=== PATIENT | female | born 1990 | race Caucasian/White ===

== ENCOUNTER 2020-06-04 09:13 | Emergency (ER) | payer MEDICAID ==
[~2020-06-04] VITALS: Ht 170.2 cm; Wt 102.1 kg
[2020-06-04 09:33] VITALS: BP 140/88
== END 2020-06-04 11:00 | disposition home or self-care (01) ==
LOC: ER 09:13
DX: S29.012A Strain of muscle and tendon of back wall of thorax, initial encounter (principal); X50.1XXA Overexertion from prolonged static or awkward postures, initial encounter; Y93.89 Activity, other specified; Y92.89 Other specified places as the place of occurrence of the external cause; Y99.8 Other external cause status
CPT/HCPCS: 72070

== ENCOUNTER 2022-04-17 10:19 | Emergency (ER) | payer MEDICAID | END 2022-04-17 10:58 | disposition left against medical advice (07) | LOC: ER 10:19 | DX: R10.9 Unspecified abdominal pain (principal); R11.10 Vomiting, unspecified; Z53.21 Procedure and treatment not carried out due to patient leaving prior to being seen by health care provider ==

== ENCOUNTER 2022-04-19 07:00 | Emergency (ER) | payer MEDICAID ==
[~2022-04-19] VITALS: Ht 170.2 cm; Wt 220.0 kg
[2022-04-19 08:08] LABS: Urine Bacteria NONE SEEN /hpf (None Seen); Urine Blood Negative /uL (Negative); Urine Mucus FEW (None Seen); Urine Specific Gravity 1.031 (1.001-1.035); Urine WBC 4 /hpf (0 - 5)
[2022-04-19] MEDS ORDERED: KETOROLAC TROMETH 30 MG/ML 1ML VIAL IV ONE (08:30)
[2022-04-19] MEDS ORDERED: METOCLOPRAMIDE HCL 5MG/ml INJ 2ml VIAL IV ONE (08:30)
[2022-04-19] MEDS ORDERED: SODIUM CHLORIDE 0.9% 1,000 ML IV ONE (08:30)
[2022-04-19 08:31] LABS: Basophils # (auto) 0 10 ^3/uL (0-0.2); Basophils % (auto) 0.6 % (0.0-2.0); Eosinophils # (auto) 0.1 10 ^3/uL (0-0.8); Eosinophils % (auto) 1.4 % (0.0-7.0); Hematocrit 38.9 % (36.0-46.0); Hemoglobin 12.8 g/dL (12.2-16.2); Lymphocytes # (auto) 1.5 10 ^3/uL (0.4-5.4); Lymphocytes % (auto) 18.7 % (10.0-50.0); Mean Corpuscular Hemoglobin 28.8 pg (28.0-32.0); Mean Corpuscular Hgb Conc. 32.8 g/dL (32.0-36.0); Mean Corpuscular Volume 87.9 fL (80.0-100.0); Monocytes # (auto) 0.6 10 ^3/uL (0-1.3); Neutrophils # (auto) 5.8 10 ^3/uL (1.6-8.6); Neutrophils % (auto) 72.3 % (37.0-80.0); Red Blood Cells 4.43 10^6/uL (4.0-5.20); Red Cell Distribution Width 13.4 % (11.8-14.3)
[2022-04-19 08:47] LABS: Albumin 3.9 g/dL (3.4-5.0); Calcium 8.9 mg/dL (8.5-10.1)
[2022-04-19 08:50] LABS: BUN/Creatinine Ratio 25.3; Bilirubin, Total 0.2 mg/dL (0.2-1.0); Total Protein 7.2 g/dL (6.4-8.2)
[2022-04-19] MEDS ORDERED: MORPHINE SULFATE INJ 2 MG/ml SYRG IV ONE (10:00)
[2022-04-19] MEDS ORDERED: ONDANSETRON HCL 4 MG/2 ML VIAL ONE (10:06)
[2022-04-19 10:13] VITALS: BP 177/101
[2022-04-19] MEDS ORDERED: ONDANSETRON HCL 4 MG/2 ML VIAL IV ONE (10:15)
== END 2022-04-19 10:36 | disposition left against medical advice (07) ==
LOC: ER 07:00
DX: R10.30 Lower abdominal pain, unspecified (principal)
CPT/HCPCS: 36415; 71046; 74177; 80053; 81001; 81025; 83690; 83735; 84702; 85025; 96361; 96374; 96375; 99285; J1885; J2270; J2405; J2765; J7030

== ENCOUNTER 2022-05-02 22:05 | Emergency (ER) | payer MEDICAID ==
[~2022-05-02] VITALS: Ht 167.6 cm; Wt 95.5 kg
[2022-05-02 22:10] VITALS: BP 147/87
== END 2022-05-03 08:08 | disposition left against medical advice (07) ==
LOC: EDBD 22:05 → ER 22:12
DX: R10.9 Unspecified abdominal pain (principal); Z53.21 Procedure and treatment not carried out due to patient leaving prior to being seen by health care provider

== ENCOUNTER 2022-05-10 01:33 | Inpatient (IN) | payer MEDICAID ==
[~2022-05-10] VITALS: Ht 170.2 cm; Wt 102.5 kg
[2022-05-10 02:57] LABS: Basophils # (auto) 0 10 ^3/uL (0-0.2); Basophils % (auto) 0.4 % (0.0-2.0); Eosinophils # (auto) 0.1 10 ^3/uL (0-0.8); Eosinophils % (auto) 0.9 % (0.0-7.0); Hematocrit 41.3 % (36.0-46.0); Lymphocytes # (auto) 1.7 10 ^3/uL (0.4-5.4); Lymphocytes % (auto) 18.4 % (10.0-50.0); Mean Corpuscular Hemoglobin 29.7 pg (28.0-32.0); Mean Corpuscular Hgb Conc. 33.9 g/dL (32.0-36.0); Mean Corpuscular Volume 87.7 fL (80.0-100.0); Monocytes # (auto) 1.3 10 ^3/uL (0-1.3); Neutrophils % (auto) 66.3 % (37.0-80.0); Nucleated Red Blood Cells % 0.1 %; Red Blood Cells 4.71 10^6/uL (4.0-5.20); Red Cell Distribution Width 13.5 % (11.8-14.3); White Blood Cell 9.1 10^3/uL (4.4-10.8)
[2022-05-10 03:16] LABS: Albumin 4.3 g/dL (3.4-5.0); BUN/Creatinine Ratio 23.8; Calcium 8.8 mg/dL (8.5-10.1); Potassium 3.3 mmol/L (3.5-5.1)
[2022-05-10 03:18] LABS: Bilirubin, Total 0.6 mg/dL (0.2-1.0)
[2022-05-10 08:24] LABS: Urine Bacteria FEW /hpf (None Seen); Urine Blood Negative /uL (Negative); Urine Mucus FEW (None Seen); Urine Specific Gravity 1.032 (1.001-1.035); Urine WBC 2 /hpf (0 - 5)
[2022-05-10] MEDS ORDERED: KETOROLAC TROMETH 30 MG/ML 1ML VIAL IV ONE (10:00)
[2022-05-10] MEDS ORDERED: SODIUM CHLORIDE 0.9% 1,000 ML IV ONE (10:00)
[2022-05-10] MEDS ORDERED: METOCLOPRAMIDE HCL 5MG/ml INJ 2ml VIAL IV ONE ×2 (10:00→10:30)
[2022-05-10] MEDS ORDERED: TEMAZEPAM 15 MG CAP PO PRN (10:15)
[2022-05-10] MEDS ORDERED: MORPHINE SULFATE INJ 2 MG/ml SYRG IV PRN (10:15)
[2022-05-10] MEDS ORDERED: TAMSULOSIN HYDROCHLORIDE 0.4 MG CAP PO ONE (10:15)
[2022-05-10] MEDS: SODIUM CHLORIDE 0.9% 1,000 ML IV SCH ×4 (10:15→21:45)
[2022-05-10] MEDS ORDERED: NITROGLYCERIN 0.4 MG SL TAB SL PRN (10:15)
[2022-05-10] MEDS ORDERED: ACETAMINOPHEN 325 MG TAB PO PRN (10:15)
[2022-05-10] MEDS: cefTRIAXone 1GM/50ML D5W 50 ML IV SCH (10:26)
[2022-05-10] MEDS: METOCLOPRAMIDE HCL 5MG/ml INJ 2ml VIAL IV SCH ×2 (10:26→17:51)
[2022-05-10] MEDS ORDERED: POTASSIUM CHLORIDE 20 MEQ, LIDOCAINE 1% (LOCAL ANESTH.) 2 ML in SODIUM CHL 0.9% 100 ML IV ONE (11:30)
[2022-05-10] MEDS ORDERED: hydrALAZINE HCL 20 MG/ML VL IV PRN (13:45)
[2022-05-10] MEDS ORDERED: traMADol HCL 50 MG TAB PO PRN (13:45)
[2022-05-10] MEDS: SUCRALFATE 1 GM/10 ML ORAL SUSP PO SCH (16:53)
[2022-05-10] MEDS: ONDANSETRON HCL 4 MG/2 ML VIAL IV PRN ×2 (16:54→22:12)
[2022-05-10] MEDS: MORPHINE SULFATE INJ 2 MG/ml SYRG IV PRN ×2 (16:54→22:21)
[2022-05-10 23:03] VITALS: BP 120/64
[2022-05-10 23:33] VITALS: BP 120/64
[2022-05-11] MEDS: METOCLOPRAMIDE HCL 5MG/ml INJ 2ml VIAL IV SCH ×4 (00:33→18:58)
[2022-05-11 04:30] VITALS: BP 112/58
[2022-05-11] MEDS: SODIUM CHLORIDE 0.9% 1,000 ML IV SCH ×4 (05:19→22:01)
[2022-05-11] MEDS: SUCRALFATE 1 GM/10 ML ORAL SUSP PO SCH ×2 (06:23→18:58)
[2022-05-11 08:33] VITALS: BP 114/58
[2022-05-11] MEDS: MORPHINE SULFATE INJ 2 MG/ml SYRG IV PRN ×3 (09:07→23:19)
[2022-05-11] MEDS: cefTRIAXone 1GM/50ML D5W 50 ML IV SCH (09:07)
[2022-05-11] MEDS: TAMSULOSIN HYDROCHLORIDE 0.4 MG CAP PO SCH (09:08)
[2022-05-11] MEDS: PANTOPRAZOLE 40 MG/10 ML VIAL INJ IV SCH (09:08)
[2022-05-11 09:42] LABS: Basophils # (auto) 0 10 ^3/uL (0-0.2); Basophils % (auto) 0.8 % (0.0-2.0); Eosinophils # (auto) 0.2 10 ^3/uL (0-0.8); Eosinophils % (auto) 2.7 % (0.0-7.0); Hematocrit 37.7 % (36.0-46.0); Hemoglobin 12.7 g/dL (12.2-16.2); Lymphocytes # (auto) 0.8 10 ^3/uL (0.4-5.4); Lymphocytes % (auto) 13.5 % (10.0-50.0); Mean Corpuscular Hemoglobin 29.3 pg (28.0-32.0); Mean Corpuscular Hgb Conc. 33.5 g/dL (32.0-36.0); Mean Corpuscular Volume 87.3 fL (80.0-100.0); Monocytes # (auto) 0.8 10 ^3/uL (0-1.3); Monocytes % (auto) 12.5 % (0.0-12.0); Neutrophils # (auto) 4.4 10 ^3/uL (1.6-8.6); Neutrophils % (auto) 70.5 % (37.0-80.0); Nucleated Red Blood Cells % 0.1 %; Red Blood Cells 4.32 10^6/uL (4.0-5.20); Red Cell Distribution Width 13.3 % (11.8-14.3); White Blood Cell 6.2 10^3/uL (4.4-10.8)
[2022-05-11 10:02] LABS: Potassium 3.3 mmol/L (3.5-5.1)
[2022-05-11 10:13] LABS: Albumin 3.5 g/dL (3.4-5.0); BUN/Creatinine Ratio 23.8; Bilirubin, Total 0.6 mg/dL (0.2-1.0); Calcium 8.2 mg/dL (8.5-10.1); Magnesium 2.2 mg/dL (1.6-2.6); Phosphorus 2.4 mg/dL (2.5-4.90); Total Protein 6.1 g/dL (6.4-8.2)
[2022-05-11 12:57] VITALS: BP 110/52
[2022-05-11 17:23] VITALS: BP 111/50
[2022-05-11 20:00] VITALS: BP 126/60
[2022-05-11] MEDS: ONDANSETRON HCL 4 MG/2 ML VIAL IV PRN (23:19)
[2022-05-12] MEDS: METOCLOPRAMIDE HCL 5MG/ml INJ 2ml VIAL IV SCH ×4 (00:32→17:49)
[2022-05-12 05:07] VITALS: BP 125/62
[2022-05-12] MEDS: SODIUM CHLORIDE 0.9% 1,000 ML IV SCH ×2 (05:45→13:55)
[2022-05-12] MEDS: SUCRALFATE 1 GM/10 ML ORAL SUSP PO SCH ×2 (06:10→17:49)
[2022-05-12 09:35] VITALS: BP 118/67
[2022-05-12] MEDS: TAMSULOSIN HYDROCHLORIDE 0.4 MG CAP PO SCH (09:57)
[2022-05-12] MEDS: PANTOPRAZOLE 40 MG/10 ML VIAL INJ IV SCH (09:57)
[2022-05-12] MEDS: ONDANSETRON HCL 4 MG/2 ML VIAL IV PRN (09:57)
[2022-05-12] MEDS: cefTRIAXone 1GM/50ML D5W 50 ML IV SCH (09:58)
[2022-05-12] MEDS: MORPHINE SULFATE INJ 2 MG/ml SYRG IV PRN (09:59)
[2022-05-12 10:34] LABS: BUN/Creatinine Ratio 14.8; Potassium 3.4 mmol/L (3.5-5.1)
[2022-05-12 11:35] LABS: INR 1.09 (0.9-1.15); Partial Thromboplastin Time 26.7 sec (24.6-33.4)
[2022-05-12] MEDS ORDERED: LIDOCAINE VISCOUS 2% 15ML UD ONE (12:21)
[2022-05-12] MEDS ORDERED: MIDAZOLAM HCL 5 MG/ML-1ML VIAL ONE (12:21)
[2022-05-12] MEDS ORDERED: fentaNYL CITRATE 100 MCG/2 ML VL ONE (12:22)
[2022-05-12] MEDS ORDERED: diphenhdrAMINE HCL 50 MG/1 ML VL ONE (12:22)
[2022-05-12] MEDS ORDERED: GADOTERATE MEG 10 MMOL/20ml INJ (0.5MMOL/ml) IV ONE (15:06)
[2022-05-12] MEDS ORDERED: LIDOCAINE VISCOUS 2% 15ML UD MT ONE (16:20)
[2022-05-12] MEDS ORDERED: MIDAZOLAM HCL 5 MG/ML-1ML VIAL IV ONE ×3 (16:21→16:25)
[2022-05-12] MEDS ORDERED: fentaNYL CITRATE 100 MCG/2 ML VL IV ONE ×2 (16:21→16:24)
[2022-05-12] MEDS ORDERED: diphenhdrAMINE HCL 50 MG/1 ML VL IV ONE ×2 (16:21→16:22)
[2022-05-12 17:05] VITALS: BP 122/75
== END 2022-05-12 18:30 | disposition left against medical advice (07) | DRG 465 ==
LOC: ER 01:33 → OVERFLOW 10:17 → WEST WING 23:00
PROVIDERS: ADMIT Nurse Practitioner Family; ATTEND Nurse Practitioner Family
PROC: 0DB68ZX Excision of Stomach, Via Natural or Artificial Opening Endoscopic, Diagnostic (ICD-10-PCS; 2022-05-12)
PROC: 0DB98ZX Excision of Duodenum, Via Natural or Artificial Opening Endoscopic, Diagnostic (ICD-10-PCS; principal; 2022-05-12 16:17)
DX: N20.0 Calculus of kidney (principal); E66.9 Obesity, unspecified; I10 Essential (primary) hypertension; N28.1 Cyst of kidney, acquired; N29 Other disorders of kidney and ureter in diseases classified elsewhere; Z53.29 Procedure and treatment not carried out because of patient's decision for other reasons; Z20.822 Contact with and (suspected) exposure to COVID-19; K29.70 Gastritis, unspecified, without bleeding; Z82.71 Family history of polycystic kidney; Z68.34 Body mass index [BMI] 34.0-34.9, adult
CPT/HCPCS: 36415; 43239; 74176; 80048; 80053; 81001; 83690; 83735; 84100; 84702; 85025; 85610; 85730; 87081; 87426; 96361; 96365; 96375; C9113; G0378; J0696; J1885; J2001; J2250; J2405

== ENCOUNTER 2022-10-04 14:35 | Emergency (ER) | payer MEDICAID ==
[~2022-10-04] VITALS: Ht 170.2 cm; Wt 108.0 kg
[2022-10-04 14:35] VITALS: BP 29/83
[~2022-10-04 14:35] MED LIST: ONDA-144 PO; PANT40TA2 PO; TRAM-297 PO
[2022-10-04 15:49] LABS: Eosinophils # (auto) 0 10 ^3/uL (0-0.8); Hemoglobin 14.7 g/dL (12.2-16.2); Lymphocytes # (auto) 1.1 10 ^3/uL (0.4-5.4); Mean Corpuscular Volume 88.1 fL (80.0-100.0); Monocytes # (auto) 0.5 10 ^3/uL (0-1.3)
[2022-10-04 15:51] LABS: Basophils # (auto) 0 10 ^3/uL (0-0.2); Basophils % (auto) 0.3 % (0.0-2.0); Mean Corpuscular Hemoglobin 30.1 pg (28.0-32.0); Mean Corpuscular Hgb Conc. 34.1 g/dL (32.0-36.0); Monocytes % (auto) 4.5 % (0.0-12.0); Neutrophils # (auto) 9.5 10 ^3/uL (1.6-8.6); Neutrophils % (auto) 85.2 % (37.0-80.0); Red Blood Cells 4.88 10^6/uL (4.0-5.20); Red Cell Distribution Width 13.3 % (11.8-14.3); White Blood Cell 11.1 10^3/uL (4.4-10.8)
[2022-10-04 16:05] LABS: Albumin 4.6 g/dL (3.4-5.0); BUN/Creatinine Ratio 20.2; Calcium 10.1 mg/dL (8.5-10.1); Potassium 3.9 mmol/L (3.5-5.1)
[2022-10-04 16:08] LABS: Bilirubin, Total 0.6 mg/dL (0.2-1.0); Total Protein 8.5 g/dL (6.4-8.2)
[2022-10-04] MEDS ORDERED: SODIUM CHLORIDE 0.9% 1,000 ML IV ONE ×2 (16:15)
== END 2022-10-04 18:35 | disposition left against medical advice (07) ==
LOC: ER 14:35
DX: R10.84 Generalized abdominal pain (principal); R11.2 Nausea with vomiting, unspecified; E11.9 Type 2 diabetes mellitus without complications; Z90.89 Acquired absence of other organs; Z79.899 Other long term (current) drug therapy
CPT/HCPCS: 36415; 80053; 83690; 85025

== ENCOUNTER 2023-11-25 13:28 | Emergency (ER) | payer MEDICAID ==
[~2023-11-25] VITALS: Ht 170.2 cm; Wt 122.0 kg
[2023-11-25 15:17] VITALS: BP 151/88; PULSE 99; RESP 16; TEMP 98.3; O2SAT 98
[2023-11-25] MEDS ORDERED: AUG875T PO (15:44)
[2023-11-25] MEDS ORDERED: GUAI200T6 PO (15:44)
[2023-11-25] MEDS ORDERED: ACET500T58 PO (15:44)
[2023-11-25] MEDS ORDERED: BENZ200C64 PO (15:44)
[2023-11-25] MEDS ORDERED: PROM1SOL4 PO (15:44)
== END 2023-11-25 15:47 | disposition home or self-care (01) ==
LOC: ER 13:28
DX: B34.9 Viral infection, unspecified (principal); J06.9 Acute upper respiratory infection, unspecified; E11.9 Type 2 diabetes mellitus without complications

== ENCOUNTER 2024-07-31 23:39 | Emergency (ER) | payer MEDICAID ==
[~2024-07-31] VITALS: Ht 170.2 cm; Wt 125.0 kg
[~2024-07-31 23:39] MED LIST changes: +ACET500T58 PO; +AUG875T PO; +BENZ200C64 PO; +GUAI200T6 PO; +PROM1SOL4 PO
[2024-08-01] MEDS ORDERED: ONDANSETRON ODT 4 MG TAB PO ONE (00:15)
[2024-08-01 00:28] LABS: Basophils # (auto) 0.1 10 ^3/uL (0-0.2); Basophils % (auto) 0.5 % (0.0-2.0); Eosinophils # (auto) 0.1 10 ^3/uL (0-0.8); Eosinophils % (auto) 0.5 % (0.0-7.0); Hematocrit 42.1 % (36.0-46.0); Hemoglobin 14.1 g/dL (12.2-16.2); Lymphocytes # (auto) 1.9 10 ^3/uL (0.4-5.4); Lymphocytes % (auto) 14.7 % (10.0-50.0); Mean Corpuscular Hemoglobin 28.8 pg (28.0-32.0); Mean Corpuscular Hgb Conc. 33.4 g/dL (32.0-36.0); Mean Corpuscular Volume 86.3 fL (80.0-100.0); Monocytes # (auto) 1.4 10 ^3/uL (0-1.3); Monocytes % (auto) 10.9 % (0.0-12.0); Neutrophils # (auto) 9.4 10 ^3/uL (1.6-8.6); Neutrophils % (auto) 73.4 % (37.0-80.0); Platelet Count (auto) 395 10^3/uL (140-450); Red Blood Cells 4.88 10^6/uL (4.0-5.20); Red Cell Distribution Width 15.4 % (11.8-14.3); White Blood Cell 12.8 10^3/uL (4.4-10.8)
[2024-08-01 00:31] LABS: Urine Bacteria FEW /hpf (None Seen); Urine Blood 1+ /uL (Negative); Urine Clarity Turbid (Clear); Urine Color Yellow (Yellow); Urine Mucus FEW (None Seen); Urine Protein, UAD 2+ (Negative); Urine Specific Gravity 1.027 (1.001-1.035); Urine Squamous Epithelial Cell FEW /hpf (<5); Urine Urobilinogen Normal (Negative); Urine WBC 14 /hpf (0 - 5); Urine pH 6.5 (5.0-9.0)
--- NOTE | 2024-08-01 00:34 | ED.PDOC ---
GI ASSESSMENT HPI Comments 33-year-old female who came to ER due to abdominal pain. Patient states she has been having abdominal pain for over a week. Pain to be suprapubic radiating to her left flank and back area, associated bouts of nausea and vomiting. States she could not keep anything in. Patient was seen at [facility] and showed negative results. Earlier today, patient had a bowel movement, last bowel movement was 2 weeks ago, she started having rectal pain, and defecated blackish stools. Persistence of abdominal and rectal pain with intractable nausea and vomiting prompted patient to come to the ER Chief Complaint: Abdominal Pain Time Seen by MD: 00:33 Primary Care Provider: NONE Reviewed Notes: Nurses Notes Allergies: Coded Allergies: NO KNOWN ALLERGIES (Unverified , 02/25/15) Home Meds Active Scripts Guaifenesin (Guaifenesin) 200 Mg Tab, 200 MG PO BIDP PRN for 10 Days, #20 TAB 0 Refills Prov:TIKA LAIRD NP 11/25/23 Acetaminophen (Acetaminophen) 500 Mg Tab, 1000 MG PO QIDPRN for 10 Days, #80 TAB 0 Refills Prov:TIKA LAIRD NP 11/25/23 Promethazine-Dm (Promethazine Dm 6.25-15 mg/5Ml) 1 Ananya Ananya, 5 ML PO TIDPRN PRN for 10 Days, #150 ML 0 Refills Prov:TIKA LAIRD NP 11/25/23 Benzonatate (Benzonatate) 200 Mg Cap, 1 CAP PO TID for 10 Days, #60 CAP 0 Refills Prov:TIKA LAIRD NP 11/25/23 Amoxicillin & Pot Clavulanate (AUGMENTIN TABLET) 875 Mg Tb, 875 MG PO BID for 5 Days, #10 TAB 0 Refills Prov:TIKA LAIRD NP 11/25/23 Tramadol Hcl (Ultram) 50 Mg Tab, 1 TAB PO Q6HR, #30 TAB Prov:LUIS POSADA MD 09/27/22 Pantoprazole Sodium Sesquihydr (Protonix) 40 Mg Tab, 40 MG PO DAILY, #30 TAB Prov:LUIS POSADA MD 09/27/22 Ondansetron (Zofran) 4 Mg Tab, 1 TAB PO Q6HR, #20 TAB Prov:LUIS POSADA MD 09/27/22 Information Source: Patient Mode of Arrival: Ambulatory Timing: Hours Duration: Since onset Prehospital treatment: None Quality: Aching Vomitus: Watery Stool: Impaction Severity: Moderate Recent: None Recent Hx of: Diabetes Pain Location: Suprapubic Modifying Factors: Nothing Associated sign and symptoms: Nausea, Vomiting, Melena, Abdominal Pain Past Medical History PAST MEDICAL HISTORY: DM Surgical History: Tonsillectomy NEONATAL PEDIATRIC NURSE History: No Pertinent NEONATAL PEDIATRIC NURSE History Family History Family History: Reviewed,noncontributory to illness Social History Smoker: Non-Smoker Alcohol: Denies ETOH Use Drugs: Denies Drug Use Lives In: Home Constitutional: denies: chills, diaphoresis, fatigue, fever, malaise, sweats, weakness, others EENTM: denies: blurred vision, double vision, ear bleeding, ear discharge, ear drainage, ear pain, ear ringing, eye pain, eye redness, hearing loss, mouth pain, mouth swelling, nasal discharge, nose bleeding, nose congestion, nose pain, photophobia, tearing, throat pain, throat swelling, voice changes, others Respiratory: denies: cough, hemoptysis, orthopnea, SOB at rest, shortness of breath, SOB with excertion, stridor, wheezing, others Cardiovascular: denies: chest pain, dizzy spells, diaphoresis, Dyspnea on exertion, edema, irregular heart beat, left arm pain, lightheadedness, palpitations, PND, syncope, others Gastrointestinal: reports: abdominal pain, constipated, melena, nausea, rectal pain, vomiting; denies: abdomen distended, blood streaked bowels, diarrhea, dysphagia, difficulty swallowing, hematemesis, poor appetite, poor fluid intake, rectal bleeding, others Genitourinary: denies: abnormal vagina bleeding, burning, dyspareunia, dysuria, flank pain, frequency, hematuria, incontinence, pain, , vagina discharge, urgency, others Neurological: denies: dizziness, fainting, headache, left sided numbness, left sided weakness, numbness, paresthesia, pre-existing deficit, right sided numbness, right sided weakness, seizure, speech problems, tingling, tremors, weakness, others Musculoskeletal: denies: back pain, gout, joint pain, joint swelling, muscle pain, muscle stiffness, neck pain, others Integumetry: denies: bruises, change in color, change in hair/nails, dryness, laceration, lesions, lumps, rash, wounds, others Allergic/Immunocompromised: denies: Difficulty Healing, Frequent Infections, Hives, Itching, others Hematologic/Lymphatic: denies: anemia, blood clots, easy bleeding, easy bruising, swollen glands, others Endocrine: denies: excessive hunger, excessive sweating, excessive thirst, excessive urination, flushing, intolerance to cold, intolerance to heat, unexplained weight gain, unexplained weight loss, others Psychiatric: denies: anxiety, bipolar disorder, depression, hopeless, panic disorder, schizophrenia, sleepless, suicidal, others Physical Exam General Appearance: Moderate Distress (Patient appears to be in moderate distress and very uncomfortable at time of evaluation.), Obese HEENT: Normal ENT Inspection, Pharynx Normal, TMs Normal Neck: Full Range of Motion, Non-Tender, Normal, Normal Inspection Respiratory: Chest Non-Tender, Lungs Clear, No Accessory Muscle Use, No Resp iratory Distress, Normal Breath Sounds Cardiovascular: No Edema, No JVD, No Murmur, No Gallop, Normal Peripheral Pulses, Regular Rate/Rhythm Breast Exam: Deferred Gastrointestinal: No Pulsatile Mass, Normal Bowel Sounds, Soft, Other (Diffuse bilateral lower abdominal pain extending towards the left flank. No definitive CVA tenderness. Difficult to assess due to body habitus.) Genitalia: Deferred Pelvic: Deferred Rectal: Deferred Extremities: No calf tenderness, Normal capillary refill, Normal inspection, Normal range of motion, Non-tender, No pedal edema Musculoskeletal : Apperance: Normal Neurologic: Alert, No Motor Deficits, Normal Affect, Normal Mood, No Sensory Deficits Cerebellar Function: Normal Reflexes: Normal Skin: Dry, Normal Color, Warm Lymphatic: No Adenopathy Was a procedure done? Was a procedure done?: No GI differential Dx Differential Diagnosis: Bowel Obstruction, Constipation, Diverticular disease, Gastritis/PUD, Gastroenteritis, Hernia, UTI, Urolithiasis X-Ray, Labs, Meds, VS Vital Signs Date Time Temp Pulse Resp B/P (MAP) Pulse Ox O2 Delivery O2 Flow Rate FiO2 07/31/24 23:46 99.9 131 20 151/98 (115) 94 Lab Test 08/01/24 00:21 07/31/24 23:45 Range/Units White Blood Count 12.8 H 4.4-10.8 10^3/uL Red Blood Count 4.88 4.0-5.20 10^6/uL Hemoglobin 14.1 12.2-16.2 g/dL Hematocrit 42.1 36.0-46.0 % Mean Corpuscular Volume 86.3 80.0-100.0 fL Mean Corpuscular Hemoglobin 28.8 28.0-32.0 pg Mean Corpuscular Hemoglobin Concent 33.4 32.0-36.0 g/dL Red Cell Distribution Width 15.4 H 11.8-14.3 % Platelet Count 395 140-450 10^3/uL Mean Platelet Volume 8.3 6.9-10.8 fL Neutrophils (%) (Auto) 73.4 37.0-80.0 % Lymphocytes (%) (Auto) 14.7 10.0-50.0 % Monocytes (%) (Auto) 10.9 0.0-12.0 % Eosinophils (%) (Auto) 0.5 0.0-7.0 % Basophils (%) (Auto) 0.5 0.0-2.0 % Neutrophils # (Auto) 9.4 H 1.6-8.6 10 ^3/uL Lymphocytes # (Auto) 1.9 0.4-5.4 10 ^3/uL Monocytes # (Auto) 1.4 H 0-1.3 10 ^3/uL Eosinophils # (Auto) 0.1 0-0.8 10 ^3/uL Basophils # (Auto) 0.1 0-0.2 10 ^3/uL Nucleated Red Blood Cells 0.0 % Sodium Level 138 136-145 mmol/L Potassium Level 3.2 L 3.5-5.1 mmol/L Chloride Level 106 98-107 mmol/L Carbon Dioxide Level 22 20-31 mmol/L Anion Gap 10 5-15 Blood Urea Nitrogen 16 9-23 mg/dL Creatinine 0.90 0.550-1.02 mg/dL Glomerular Filtration Rate Calc 87 >90 mL/min BUN/Creatinine Ratio 17.8 10.0-20.0 Serum Glucose 114 H 74-106 mg/dL Calcium Level 10.5 H 8.7-10.4 mg/dL Lipase 32 12-53 U/L Urine Color Yellow Yellow Urine Clarity Turbid H Clear Urine pH 6.5 5.0-9.0 Urine Specific [place] 1.027 1.001-1.035 Urine Protein 2+ H Negative Urine Ketones 4+ H Negative Urine Blood 1+ H Negative /uL Urine Nitrite Negative Negative Urine Bilirubin Negative Negative Urine Urobilinogen Normal Negative mg/dL Urine Leukocyte Esterase 2+ Negative /uL Urine RBC 4 0 - 4 /hpf Urine WBC 14 0 - 5 /hpf Urine Squamous Epithelial Cells Few <5 /hpf Urine Bacteria Few H None Seen /hpf Urine Mucus Few None Seen Urine Glucose Normal Normal mg/dL X-Ray, Labs, Meds, VS Comment All studies performed the ED were evaluated by me personally. Serum laboratories were unremarkable but urinalysis confirmed a UTI. Patient was dispensed her 1st dose of antibiotics prior to discharge. Advised patient utilize medication as directed and to completion. CT studies of the abdomen were unremarkable for any systemic process. Time of 1ST Reevaluation: 02:37 Reevaluation 1ST: Improved Consultation: PCP Patient Education/Counseling: Diagnosis, Treatment Family Education/Counseling: Diagnosis, Treatment Departure 1 Departure Time of Disposition: 02:38 Impression: Primary Impression: UTI (urinary tract infection) Disposition: HOME / SELF CARE / HOMELESS Condition: Stable Additional Instructions: Advised patient utilize antibiotics as directed until completion. Patient should practice good hydration and healthy nutrition throughout illness event. e-Prescriptions Acetaminophen (Acetaminophen) 500 Mg Tab 500 MG PO Q4HP PRN, #30 TAB Prov: PIYUSH TREADWELL PAC 08/01/24 Ibuprofen Micronized (Ibuprofen) 800 Mg Tab 800 MG PO Q8HP PRN, #20 TAB Prov: PIYUSH TREADWELL 08/01/24 Ondansetron Odt 4MG Tab (ZOFRAN PO) 4 Mg Tb 4 MG PO Q6HP PRN, #20 TAB ODT TAB-DISSOLVE IN MOUTH, THEN SWALLOW Prov: PIYUSH TREADWELL 08/01/24 Ciprofloxacin Hcl (Cipro) 500 Mg Tab 1 TAB PO BID for 7 Days, #14 TAB Prov: PIYUSH TREADWELL 08/01/24 Discharged With: Self, Friend Critical Care Note Critical Care Time?: No Stability Stability form required: No Heart Score Heart Score: Heart Score Response (Comments) Value History N/A 0 EKG N/A 0 Age N/A 0 Risk Factors N/A 0 Troponin N/A 0 Total 0 I personally scribed for PIYUSH TREADWELL PAC ([email or web address]) on 08/01/24 at 00:34. Electronically submitted by Naif Fofana ([email or web address]). PIYUSH TREADWELL PAC Aug 01, 2024 00:34
[2024-08-01 00:43] LABS: Chloride 106 mmol/L (98-107); Sodium 138 mmol/L (136-145)
[2024-08-01 00:44] LABS: Anion Gap 10 (5-15); Carbon Dioxide 22 mmol/L (20-31)
[2024-08-01 00:50] LABS: BUN/Creatinine Ratio 17.8 (10.0-20.0); Blood Urea Nitrogen 16 mg/dL (9-23); Lipase 32 U/L (12-53)
[2024-08-01 00:54] LABS: Calcium 10.5 mg/dL (8.7-10.4); Glucose 114 mg/dL (74-106); Potassium 3.2 mmol/L (3.5-5.1)
[2024-08-01] MEDS ORDERED: CIPR-173 PO (02:39)
[2024-08-01] MEDS ORDERED: IBUP-1455 PO (02:39)
[2024-08-01] MEDS ORDERED: ACET500T58 PO (02:39)
[2024-08-01] MEDS ORDERED: ZOFR4T PO (02:39)
[2024-08-01] MEDS ORDERED: CIPROFLOXACIN HCL 500 MG TAB PO ONE (02:45)
[2024-08-01] MEDS ORDERED: IOHEXOL 300 MG/ML 100ML BOTTLE IJ ONE (03:10)
[2024-08-01] MEDS: HYDROmorphone HCL 2 MG/ML VL/or syr IV ONE (03:15)
[2024-08-01] MEDS: ONDANSETRON HCL 4 MG/2 ML VIAL IV ONE (03:57)
[2024-08-01] MEDS: cefTRIAXone 1GM/50ML D5W 50 ML IV ONE (03:57)
[2024-08-01 03:58] VITALS: BP 142/96; PULSE 66; RESP 66; TEMP 98; O2SAT 96
--- NOTE | 2024-08-01 04:45 | DVH ---
Exam: CT CT AB PEL WITH IV CON ONLY History: Severe diffuse left-sided abdominal pain Comparison Study: CT of the abdomen pelvis dated 06/30/2022. Technique: Multidetector spiral CT of the abdomen was performed from lung bases to pubic symphysis. Axial imaging was performed with intravenous contrast following the uneventful administration of 100 ml Omnipaque 300. Coronal and sagittal multiplanar reformats were obtained from the axial data set b y the technologist. Radiation Dose : 1. Abdomen/Pelvis: CTDIvol 27.27 mGy, DLP 1655.3 mGy*cm. Findings: Lung Bases: Lung bases are clear. Visualized portions of the heart and pericardium are unremarkable. Liver: The liver is normal in size. No focal lesions. Gallbladder and Biliary Tree: The gallbladder is unremarkable. No intrahepatic or extrahepatic bilia ry ductal dilatation. Spleen: There is a 6 mm low attenuating lesion in the spleen. The spleen is normal in size. Pancreas: The pancreas enhances normally and there are no focal lesions. The main pancreatic duct i s not dilated. Adrenal Glands: Unremarkable Kidneys: Punctate left nephrolithiasis. Innumerable bilateral renal cysts the largest in the left ki dney upper pole measuring 3.9 cm. GI tract: The stomach is grossly normal in appearance.. No evidence of small bowel wall thickening or abnormal dilatation to suggest bowel obstruction. The colon is unremarkable. The appendix is visuali zed and is normal. Peritoneum/mesentery/retroperitoneum. No evidence of free intraperitoneal air. No ascites. No evidenc e of suspicious lymphadenopathy. Abdominal Wall: Unremarkable. Vasculature: Abdominal aorta and main branches are unremarkable. Normal vascular enhancement. Urinary Bladder: Grossly unremarkable for degree of distention. Pelvic Organs: There is an intrauterine device present. Musculoskeletal: No aggressive focal bony lesions, acute fractures or dislocation. IMPRESSION: 1. No acute abdominal or pelvic findings. 2. Innumerable bilateral renal cysts. Punctate nonobstructive left nephrolithiasis. 3. Subcentimeter splenic low attenuating lesion which may reflect a cyst or hemangioma.
== END 2024-08-01 05:02 | disposition home or self-care (01) ==
LOC: ER 23:39
DX: N39.0 Urinary tract infection, site not specified (principal); E11.9 Type 2 diabetes mellitus without complications; Z79.899 Other long term (current) drug therapy; Z90.89 Acquired absence of other organs
CPT/HCPCS: 36415; 74177; 80048; 81001; 83690; 85025; 96365; 96375; 99285; J0696; J1171; J2405; Q9967

== ENCOUNTER 2024-11-21 14:03 | Emergency (ER) | payer MEDICAID ==
[~2024-11-21] VITALS: Ht 170.2 cm; Wt 114.5 kg
[~2024-11-21 14:03] MED LIST changes: +CIPR-173 PO; +IBUP-1455 PO; +ZOFR4T PO
--- NOTE | 2024-11-21 14:26 | ED.PDOC ---
GI ASSESSMENT HPI Comments Patient denies on any blood in her vomit or having any diarrhea, constipation, urinary symptoms, fever, chills, or other associated symptoms or modifying factors at this time. Vitals: temperature of 98.5F, pulse of 94, respiratory rate of 16, blood pressure of 169/94, SpO2 of 97%RA Past medical history: denies Past surgical history: tonsillectomy 34-year-old female presents to emergency department for evaluation of one-week history of epigastric pain that wraps around the left side of the abdomen radiating to the back. Pain is constant. Pain is associated with nausea and vomiting yellow vomit. Nonbloody nonbilious. Pain improves with hot showers. Patient was seen at [place] on Sunday for the same complaint and she said that they told her that is probably viral and discharged her home. Patient denies any other acute symptoms. HPI: Poor Historian. REVIEW OF SYSTEMS: CONSTITUTIONAL: Denies acute: fever, diaphoresis, chills, HEAD: Denies acute: headache, photophobia Eyes: Denies acute: Double vision, vision loss, eye pain, eye discharge. EARS: Denies acute: tinnitus, hearing loss, ear discharge, ear pain, THROAT: Denies acute: sore throat, swelling, difficulty swallowing , pain with swallowing, change in voice. NECK: Denies acute: neck pain, neck swelling, stiff neck. HEART: Denies acute : chest pain, palpitations, LUNGS: Denies acute: SOB, wheezing, cough, hemoptysis ABDOMEN: Denies acute: diarrhea, melena , hematemesis, hematochezia SKIN: Denies acute: rash, redness, lesions, itchiness. EXTREMITIES: Denies acute: calf pain, numbness, tingling, weakness, denies pain in extremity. Denies acute: Low back pain. Neuro: Denies acute: focal neurological deficit, motor or sensory focal neurological deficit, tremors, seizure like activity, confusion, dizziness, change in mental status, loss of bowel or bladder function, cauda equina like symptoms. : Denies acute: dysuria, hematuria, flank pain, increase in urinary frequency. PSYCH: Denies acute: hallucination, suicidal ideation, homicidal ideation. FEMALE: Denies acute: abnormal vaginal bleeding, foul odor, unusual discharge. PHYSICAL EXAM: General: ----[id number]----acute distress, awake and alert. Head: normocephalic, atraumatic. Neck: supple, trachea is midline, no swelling. Throat: Normal phonation. Eyes:, no erythema, no purulent discharge, no proptosis, no icterus. Heart: regular rate, regular rhythm, no significant murmur appreciated. Lungs: no apparent respiratory distress, Able to speak in full sentences. No wheezing, no rhonchi, no crackles. No stridors Clear to auscultation bilaterally. Abdomen: Epigastric and left upper quadrant tender to palpation, non distended, soft, no guarding, no rebound, + bowel sounds. Neuro: Awake, Alert, oriented to name, self, situation, follows commands GCS=15. Speech is normal. Skin: no petechia, no purpura, no cyanosis, non-pale, not jaundice. Lower extremities: --no - Pitting edema no deformity, no focal swelling, no calf TTP. Makes eye contact. moves all four extremities. Face: no apparent facial droop. ED COURSE: Time Seen by MD: 14:15 Primary Care Provider: NONE Reviewed Notes: Nurses Notes, Medications, Allergies Allergies: Coded Allergies: NO KNOWN ALLERGIES (Unverified , 02/25/15) Home Meds Active Scripts Ondansetron Odt 4MG Tab (ZOFRAN PO) 4 Mg Tb, 8 MG PO Q8HPRN PRN for 3 Days, #18 TAB ODT TAB-DISSOLVE IN MOUTH, THEN SWALLOW Prov:KATE GARVEY DO 11/21/24 Acetaminophen (Acetaminophen) 500 Mg Tab, 500 MG PO Q4HP PRN, #30 TAB Prov:PIYUSH TREADWELL PAC 08/01/24 Ibuprofen Micronized (Ibuprofen) 800 Mg Tab, 800 MG PO Q8HP PRN, #20 TAB Prov:PIYUSH TREADWELL PAC 08/01/24 Ondansetron Odt 4MG Tab (ZOFRAN PO) 4 Mg Tb, 4 MG PO Q6HP PRN, #20 TAB ODT TAB-DISSOLVE IN MOUTH, THEN SWALLOW Prov:PIYUSH TREADWELL PAC 08/01/24 Ciprofloxacin Hcl (Cipro) 500 Mg Tab, 1 TAB PO BID for 7 Days, #14 TAB Prov:PIYUSH TREADWELL PAC 08/01/24 Guaifenesin (Guaifenesin) 200 Mg Tab, 200 MG PO BIDP PRN for 10 Days, #20 TAB 0 Refills Prov:TIKA LAIRD NATURALIZATION EXAMINER 11/25/23 Acetaminophen (Acetaminophen) 500 Mg Tab, 1000 MG PO QIDPRN for 10 Days, #80 TAB 0 Refills Prov:TIKA LAIRD NATURALIZATION EXAMINER 11/25/23 Promethazine-Dm (Promethazine Dm 6.25-15 mg/5Ml) 1 Ananya Ananya, 5 ML PO TIDPRN PRN for 10 Days, #150 ML 0 Refills Prov:TIKA LAIRD NATURALIZATION EXAMINER 11/25/23 Benzonatate (Benzonatate) 200 Mg Cap, 1 CAP PO TID for 10 Days, #60 CAP 0 Refills Prov:ROXANA LAIRDO Diana NATURALIZATION EXAMINER 11/25/23 Amoxicillin & Pot Clavulanate (AUGMENTIN TABLET) 875 Mg Tb, 875 MG PO BID for 5 Days, #10 TAB 0 Refills Prov:TIKA LAIRD NATURALIZATION EXAMINER 11/25/23 Tramadol Hcl (Ultram) 50 Mg Tab, 1 TAB PO Q6HR, #30 TAB Prov:LUIS POSADA MD 09/27/22 Pantoprazole Sodium Sesquihydr (Protonix) 40 Mg Tab, 40 MG PO DAILY, #30 TAB Prov:LUIS POSADA MD 09/27/22 Ondansetron (Zofran) 4 Mg Tab, 1 TAB PO Q6HR, #20 TAB Prov:LUIS POSADA MD 09/27/22 Information Source: Patient Mode of Arrival: Ambulatory Past Medical History PAST MEDICAL HISTORY: DM Surgical History: Tonsillectomy TODDLER 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 Was a procedure done?: No GI differential Dx Differential Diagnosis: Other (DDX include Diverticulitis, colitis, gastroenteritis, acute abdomen, SBO, enteritis, constipation, volvulus, appendicitis, Gallbladder disease, choledocolithiasis, ascending cholangitis, pancreatitis, intraAbdominal mass/neoplasm, hepatitis, UTI, pylonephritis, kidney stone, aneurysm, dissection, Inflammatory bowel disease, gastroparesis, ischemic bowel, ovarian torsion, ovarian cyst/mass, tubo-ovarian abscess, , ectopic , PID, STD.) X-Ray, Labs, Meds, VS Vital Signs Date Time Temp Pulse Resp B/P (MAP) Pulse Ox O2 Delivery O2 Flow Rate FiO2 11/21/24 20:51 70 20 99 Room Air* 0 21 11/21/24 20:50 98.4 70 17 135/75 (95) 100 98.4 11/21/24 18:43 153/85 11/21/24 18:39 98.0 75 20 153/85 (107) 100 98.0 11/21/24 14:38 98.5 94 16 169/94 (119) 97 98.5 Lab Test 11/21/24 14:29 11/21/24 14:24 Range/Units Urine Color Light-yellow Yellow Urine Clarity Clear Clear Urine pH 8.0 5.0-9.0 Urine Specific Nash 1.022 1.001-1.035 Urine Protein Trace H Negative Urine Ketones 2+ H Negative Urine Blood Trace H Negative /uL Urine Nitrite Negative Negative Urine Bilirubin Negative Negative Urine Urobilinogen Normal Negative mg/dL Urine Leukocyte Esterase Negative Negative /uL Urine RBC 3 0 - 4 /hpf Urine Microscopic WBC 1 0-5 /HPF Urine Squamous Epithelial Cells Few <5 /hpf Urine Bacteria None seen None Seen /hpf Urine Mucus Few None Seen Urine Glucose Normal Normal mg/dL Urine Test Negative Negative Urine Opiates Screen Pos NEGATIVE Urine Fentanyl Screen Neg NEGATIVE Urine Barbiturates Screen Neg NEGATIVE Urine Phencyclidine Screen Neg NEGATIVE Urine Amphetamines Screen Neg NEGATIVE Urine Benzodiazepines Screen Neg NEGATIVE Urine Cocaine Screen Neg NEGATIVE Urine Cannabinoids Screen Pos NEGATIVE White Blood Count 9.0 4.4-10.8 10^3/uL Red Blood Count 4.63 4.0-5.20 10^6/uL Hemoglobin 13.6 12.2-16.2 g/dL Hematocrit 40.3 36.0-46.0 % Mean Corpuscular Volume 87.1 80.0-100.0 fL Mean Corpuscular Hemoglobin 29.3 28.0-32.0 pg Mean Corpuscular Hemoglobin Concent 33.7 32.0-36.0 g/dL Red Cell Distribution Width 15.1 H 11.8-14.3 % Platelet Count 368 140-450 10^3/uL Mean Platelet Volume 8.7 6.9-10.8 fL Neutrophils (%) (Auto) 72.2 37.0-80.0 % Lymphocytes (%) (Auto) 18.8 10.0-50.0 % Monocytes (%) (Auto) 7.7 0.0-12.0 % Eosinophils (%) (Auto) 0.5 0.0-7.0 % Basophils (%) (Auto) 0.8 0.0-2.0 % Neutrophils # (Auto) 6.5 1.6-8.6 10 ^3/uL Lymphocytes # (Auto) 1.7 0.4-5.4 10 ^3/uL Monocytes # (Auto) 0.7 0-1.3 10 ^3/uL Eosinophils # (Auto) 0 0-0.8 10 ^3/uL Basophils # (Auto) 0.1 0-0.2 10 ^3/uL Nucleated Red Blood Cells 0.1 % Sodium Level 142 136-145 mmol/L Potassium Level 3.6 3.5-5.1 mmol/L Chloride Level 109 H 98-107 mmol/L Carbon Dioxide Level 22 20-31 mmol/L Anion Gap 11 5-15 Blood Urea Nitrogen 12 9-23 mg/dL Creatinine 0.83 0.550-1.02 mg/dL Glomerular Filtration Rate Calc 95 >90 mL/min BUN/Creatinine Ratio 14.5 10.0-20.0 Serum Glucose 105 74-106 mg/dL Lactic Acid Level 1.5 0.4-2.0 mmol/L Calcium Level 10.1 8.7-10.4 mg/dL Total Bilirubin 0.4 0.2-1.0 mg/dL Aspartate Amino Transferase (AST) 19 13-40 U/L Alanine Aminotransferase (ALT) 31 7-40 U/L Alkaline Phosphatase 57 46-116 U/L Total Protein 7.7 5.7-8.2 g/dL Albumin 4.9 H 3.2-4.8 g/dL Lipase 27 12-53 U/L [address] [address] Ph: [phone] DIAGNOSTIC IMAGING Diagnostic Imaging Report : [id number] Signed PATIENT: YAMILETH YAN ACCT: [id number] UNIT: [id number] : 1990 LOC: ER ROOM / BED: / AGE / SEX: 34 / F ADM STATUS: REG ER SERVICE 1417 ORDERING PHYSICIAN: KATE GARVEY DO PROCEDURE(s): ABPL - CT AB PEL WO CON-NO ORAL OR IV REASON: abd pain n/v ORDER NUMBER(s): [id number], ACCESSION NUMBER(s): [id number] CLINICAL HISTORY: abd pain n/v TECHNIQUE: CT of the abdomen and pelvis was performed without intravenous contrast. This exam was performed according to our departmental dose optimization program. Up-to-date CT equipment and radiation dose reduction techniques are utilized as appropriate. CTDI: 22.98 DLP: 1273.05 WID: COMPARISON: CT ABD PELVIS WO CONTRAST on DOS: 05/10/22 FINDINGS: Lower Thorax: Unremarkable. Liver and Biliary system: Unremarkable. Spleen: Unremarkable. Adrenal Glands and Kidneys: Normal adrenal glands. Redemonstration of numerous hypodense bilateral renal lesions as well as a few scattered hyperdense bilateral renal lesions likely a combination of cysts although are not optimally evaluated on noncontrast examination. There are tiny nonobstructing bilateral renal calculi. No hydronephrosis. Pancreas and Retroperitoneum: Unremarkable. Aorta and Major Vessels: Unremarkable. Bowel, Mesentery and Peritoneal space: Normal appendix. Normal caliber small and large bowel. There is no free intraperitoneal air or fluid collection. Pelvis: There is an IUD in the uterus. There is a tampon in the vagina. Otherwise unremarkable pelvis. Abdominal wall and Osseous Structures: Small fat containing umbilical hernia. No destructive osseous lesion. IMPRESSION: 1. No bowel obstruction, fluid collection, or free air. Normal appendix. 2. Numerous cysts in both kidneys not optimally evaluated on this noncontrast exam. 3. Tiny nonobstructing bilateral renal calculi. ATED BY: CAL TURNER MD DICTATED DATE/TIME: 11/21/241628 SIGNED BY: CAL TURNER MD SIGNED DATE/TIME: 11/21/241628 CC: Time of 1ST Reevaluation: 14:15 Reevaluation 1ST: Unchanged Patient Education/Counseling: Diagnosis, Treatment Family Education/Counseling: Diagnosis, Treatment Comments Patient presented with the above HPI.-abdominal pain-----workup was initiated. patient was found with the above mentioned diagnosis. the following medications were ordered: please refer to order lists of meds and tests obtained by myself Dr. Garvey. Patient ED course and VS have been stabilized. Patient has been reassessed in the ED and remained in a stable condition. Pertinent incidental findings were discussed with the patient and/or family. Patient/family voices understanding and is agreeable with plan. Patient has been observed in the ED adequate length of time to insure improvement/stability. Escalation of care considered: Consideration of escalation to observation or admission Patient was DISCHARGED home in a stable condition. All the reports of any imaging studies that were ordered by myself were reviewed by myself. Departure 1 Departure Time of Disposition: 20:02 Impression: Primary Impression: Nonspecific abdominal pain Additional Impressions: Nausea and vomiting Kidney cysts Disposition: 01 HOME / SELF CARE / HOMELESS Condition: Stable Additional Instructions: Additional instructions: You MUST follow-up with your primary care/family doctor in 1 to 2 days. If you are unable to see your primary care/family doctor, please return to our emergency room for re-assessment and re-evaluation in 1 to 2 days. Return to the emergency room here in our facility or to the nearest ER [facility] if your symptoms change or worsen. CONSULTATIONS: you MUST Follow-up for consultation as soon as possible with: -gastroenterology in 1-2 days. Please call for appointment. You MUST call the consultants office yourself to make an appointment. You may need to arrange that through your insurance and/or your primary/family doctor. If you are unable to see the computing consultant in 1 to 2 days, you must return to our emergency room (or any other ER of your choice) for re-assessment and re- evaluation. Adequate fluid hydration. Avoid fatty greasy spicy food. Avoid caffeinated products. Avoid NSAIDs. Avoid marijuana. Below is a copy of your radiological report for follow up: [address] [address] Ph: [phone] DIAGNOSTIC IMAGING Diagnostic Imaging Report : [id number] Signed PATIENT: YAMILETH YAN ACCT: [id number] UNIT: [id number] : 1990 LOC: ER ROOM / BED: / AGE / SEX: 34 / F ADM STATUS: REG ER SERVICE 1417 ORDERING PHYSICIAN: KATE GARVEY DO PROCEDURE(s): ABPL - CT AB PEL WO CON-NO ORAL OR IV REASON: abd pain n/v ORDER NUMBER(s): [id number], ACCESSION NUMBER(s): [id number] CLINICAL HISTORY: abd pain n/v TECHNIQUE: CT of the abdomen and pelvis was performed without intravenous contrast. This exam was performed according to our departmental dose optimization program. Up-to-date CT equipment and radiation dose reduction techniques are utilized as appropriate. CTDI: 22.98 DLP: 1273.05 WID: COMPARISON: CT ABD PELVIS WO CONTRAST on DOS: 05/10/22 FINDINGS: Lower Thorax: Unremarkable. Liver and Biliary system: Unremarkable. Spleen: Unremarkable. Adrenal Glands and Kidneys: Normal adrenal glands. Redemonstration of numerous hypodense bilateral renal lesions as well as a few scattered hyperdense bilateral renal lesions likely a combination of cysts although are not optimally evaluated on noncontrast examination. There are tiny nonobstructing bilateral renal calculi. No hydronephrosis. Pancreas and Retroperitoneum: Unremarkable. Aorta and Major Vessels: Unremarkable. Bowel, Mesentery and Peritoneal space: Normal appendix. Normal caliber small and large bowel. There is no free intraperitoneal air or fluid collection. Pelvis: There is an IUD in the uterus. There is a tampon in the vagina. Otherwise unremarkable pelvis. Abdominal wall and Osseous Structures: Small fat containing umbilical hernia. No destructive osseous lesion. IMPRESSION: 1. No bowel obstruction, fluid collection, or free air. Normal appendix. 2. Numerous cysts in both kidneys not optimally evaluated on this noncontrast exam. 3. Tiny nonobstructing bilateral renal calculi. ATED BY: CAL TURNER MD DICTATED DATE/TIME: 11/21/241628 SIGNED BY: CAL TURNER MD SIGNED DATE/TIME: 11/21/241628 CC: e-Prescriptions Ondansetron Odt 4MG Tab (ZOFRAN PO) 4 Mg Tb 8 MG PO Q8HPRN PRN for 3 Days, #18 TAB ODT TAB-DISSOLVE IN MOUTH, THEN SWALLOW Prov: KATE GARVEY DO 11/21/24 Discharged With: Self Critical Care Note Critical Care Time?: No I personally scribed for KATE GARVEY DO ([email or web address]) on 11/21/24 at 14:25. Electronically submitted by Ki Campbell ([email or web address]). I personally scribed for KATE GARVEY DO ([email or web address]) on 11/21/24 at 14:59. Electronically submitted by Ki Campbell ([email or web address]). I personally scribed for KATE GARVEY DO ([email or web address]) on 11/21/24 at 18:00. Electronically submitted by Ki Campbell ([email or web address]). I personally scribed for KATE GARVEY DO ([email or web address]) on 11/21/24 at 19:36. Electronically submitted by Ki Campbell ([email or web address]). KATE GARVEY DO Nov 21, 2024 14:25
[2024-11-21] MEDS: SODIUM CHLORIDE 0.9% 1,000 ML IV ONE (14:31)
[2024-11-21] MEDS: ONDANSETRON HCL 4 MG/2 ML VIAL IV ONE (14:37)
[2024-11-21 14:49] LABS: Basophils # (auto) 0.1 10 ^3/uL (0-0.2); Basophils % (auto) 0.8 % (0.0-2.0); Eosinophils # (auto) 0 10 ^3/uL (0-0.8); Eosinophils % (auto) 0.5 % (0.0-7.0); Hematocrit 40.3 % (36.0-46.0); Hemoglobin 13.6 g/dL (12.2-16.2); Lymphocytes # (auto) 1.7 10 ^3/uL (0.4-5.4); Lymphocytes % (auto) 18.8 % (10.0-50.0); Mean Corpuscular Hemoglobin 29.3 pg (28.0-32.0); Mean Corpuscular Hgb Conc. 33.7 g/dL (32.0-36.0); Mean Corpuscular Volume 87.1 fL (80.0-100.0); Monocytes # (auto) 0.7 10 ^3/uL (0-1.3); Monocytes % (auto) 7.7 % (0.0-12.0); Neutrophils # (auto) 6.5 10 ^3/uL (1.6-8.6); Neutrophils % (auto) 72.2 % (37.0-80.0); Nucleated Red Blood Cells % 0.1 %; Platelet Count (auto) 368 10^3/uL (140-450); Red Blood Cells 4.63 10^6/uL (4.0-5.20); Red Cell Distribution Width 15.1 % (11.8-14.3)
[2024-11-21 15:00] LABS: Alanine Aminotransferase 31 U/L (7-40); Alkaline Phosphatase 57 U/L (46-116); Anion Gap 11 (5-15); Aspartate Aminotransferase 19 U/L (13-40); BUN/Creatinine Ratio 14.5 (10.0-20.0); Blood Urea Nitrogen 12 mg/dL (9-23); Calcium 10.1 mg/dL (8.7-10.4); Carbon Dioxide 22 mmol/L (20-31); Glucose 105 mg/dL (74-106); Lipase 27 U/L (12-53); Potassium 3.6 mmol/L (3.5-5.1); Sodium 142 mmol/L (136-145); Total Protein 7.7 g/dL (5.7-8.2)
[2024-11-21 15:01] LABS: Albumin 4.9 g/dL (3.2-4.8); Bilirubin, Total 0.4 mg/dL (0.2-1.0); Chloride 109 mmol/L (98-107)
[2024-11-21 15:06] LABS: Urine Bacteria None Seen /hpf (None Seen)
[2024-11-21] MEDS: fentaNYL CITRATE 100 MCG/2 ML VL IV ONE ×2 (15:14→18:43)
[2024-11-21 15:27] LABS: Urine Blood TRACE /uL (Negative); Urine Clarity Clear (Clear); Urine Color Light-Yellow (Yellow); Urine Mucus FEW (None Seen); Urine Protein, UAD TRACE (Negative); Urine Specific Gravity 1.022 (1.001-1.035); Urine Squamous Epithelial Cell FEW /hpf (<5); Urine Urobilinogen Normal (Negative); Urine WBC 1 /HPF (0-5)
[2024-11-21 15:36] LABS: Amphetamine Screen, Urine Neg (NEGATIVE); Barbiturate Scree,Urine Neg (NEGATIVE); Benzodiazephine Screen, Urine Neg (NEGATIVE); Cocaine Screen, Urine Neg (NEGATIVE); Opiate Scree,Urine Pos (NEGATIVE); Phencyclidine Screen, Urine Neg (NEGATIVE)
[2024-11-21 15:37] LABS: Cannabinoid Screen, Urine Pos (NEGATIVE)
--- NOTE | 2024-11-21 16:31 | DVH ---
CLINICAL HISTORY: abd pain n/v TECHNIQUE: CT of the abdomen and pelvis was performed without intravenous contrast. This exam was per formed according to our departmental dose optimization program. Up-to-date CT equipment and radiation dose reduction techniques are utilized as appropriate. CTDI: 22.98 DLP: 1273.05 WID: COMPARISON: CT ABD PELVIS WO CONTRAST on DOS: 05/10/22 FINDINGS: Lower Thorax: Unremarkable. Liver and Biliary system: Unremarkable. Spleen: Unremarkable. Adrenal Glands and Kidneys: Normal adrenal glands. Redemonstration of numerous hypodense bilateral re nal lesions as well as a few scattered hyperdense bilateral renal lesions likely a combination of cys ts although are not optimally evaluated on noncontrast examination. There are tiny nonobstructing bi lateral renal calculi. No hydronephrosis. Pancreas and Retroperitoneum: Unremarkable. Aorta and Major Vessels: Unremarkable. Bowel, Mesentery and Peritoneal space: Normal appendix. Normal caliber small and large bowel. There i s no free intraperitoneal air or fluid collection. Pelvis: There is an IUD in the uterus. There is a tampon in the vagina. Otherwise unremarkable pelvi s. Abdominal wall and Osseous Structures: Small fat containing umbilical hernia. No destructive osseous lesion. IMPRESSION: 1. No bowel obstruction, fluid collection, or free air. Normal appendix. 2. Numerous cysts in both kidneys not optimally evaluated on this noncontrast exam. 3. Tiny nonobstructing bilateral renal calculi.
[2024-11-21] MEDS ORDERED: ZOFR4T PO (20:04)
[2024-11-21] MEDS: PANTOPRAZOLE 40 MG TAB PO ONE (20:47)
[2024-11-21] MEDS: SUCRALFATE 1 GM TAB PO ONE (20:47)
[2024-11-21] MEDS: LIDOCAINE VISCOUS 2% 15ML UD PO ONE (20:47)
[2024-11-21 20:50] VITALS: BP 135/75; TEMP 98.4
[2024-11-21 20:51] VITALS: PULSE 70; RESP 20; O2SAT 99
== END 2024-11-21 20:59 | disposition home or self-care (01) ==
LOC: ER 14:03
DX: R10.13 Epigastric pain (principal); R11.2 Nausea with vomiting, unspecified; N28.1 Cyst of kidney, acquired; E11.9 Type 2 diabetes mellitus without complications; Z90.89 Acquired absence of other organs; Z79.899 Other long term (current) drug therapy
CPT/HCPCS: 36415; 74176; 80053; 80307; 81001; 81025; 83605; 83690; 85025; 96361; 96374; 96375; 99285; J2405; J3010; J7030